=== PATIENT | female | born 1975 | race Two or more races ===

== ENCOUNTER 2023-08-03 15:38 | Emergency (ER) | payer OTHER ==
[~2023-08-03] VITALS: Ht 149.9 cm; Wt 68.0 kg
[2023-08-03 16:30] LABS: BASOPHILS % (AUTO) 0.2 % (0.0-2.0); EOSINOPHILS % (AUTO) 0.1 % (0.0-6.0); HEMATOCRIT 33 % (33-45); HEMOGLOBIN 10.9 g/dL (11.5-14.8); LYMPHOCYTES # (AUTO) 0.9 K/uL (0.8-4.8); LYMPHOCYTES % (AUTO) 10.8 % (20.0-44.0); MEAN CORPUSCULAR HEMOGLOBIN 26 PG (26.0-33.0); MEAN CORPUSCULAR HGB CONC 33 g/dl (31.0-36.0); MEAN CORPUSCULAR VOLUME 79 fL (82-100); MONOCYTES # (AUTO) 0.3 K/uL (0.1-1.30); MONOCYTES % (AUTO) 3.5 % (2.0-12.0); NEUTROPHILS # (AUTO) 6.8 K/uL (1.8-8.9); NEUTROPHILS % (AUTO) 85.4 % (43.0-81.0); PLATELET COUNT (AUTO) 326 K/uL (150-450); RED BLOOD CELL COUNT(AUTO) 4.23 MIL/uL (4.0-5.2); RED CELL DISTRIBUTION WIDTH 15.3 % (11.5-15.0)
[2023-08-03] MEDS: IV NS 0.9% 1,000 ML BAG IV ONE (16:30)
[2023-08-03] MEDS: METOCLOPRAMIDE HCL 10 MG/2 ML VIAL IV ONE (16:30)
[2023-08-03] MEDS: diphenhydrAMINE HCL 50 MG/ML VIAL IV ONE (16:30)
[2023-08-03] MEDS ORDERED: diphenhydrAMINE HCL 50 MG/ML VIAL ONE (16:32)
[2023-08-03] MEDS ORDERED: METOCLOPRAMIDE HCL 10 MG/2 ML VIAL ONE (16:33)
[2023-08-03 16:35] LABS: CALCIUM, SERUM 8.3 mg/dL (8.5-10.1); CARBON DIOXIDE 26 mmol/L (21-32); CHLORIDE 104 mmol/L (98-107); CREATININE 0.5 mg/dL (0.6-1.3); GLUCOSE 118 mg/dL (74-106); POTASSIUM 4.1 mmol/L (3.5-5.1); SODIUM SERUM 138 mmol/L (136-145); UREA NITROGEN, BLOOD 7 mg/dL (7-18)
[2023-08-03 16:41] LABS: ALANINE AMINOTRANSFERASE 18 U/L (12-78); ALBUMIN 3.5 g/dL (3.4-5.0); ALKALINE PHOSPHATASE 119 U/L (46-116); ASPARTATE AMINOTRANSFERASE 18 U/L (15-37); BILIRUBIN,DIRECT 0.1 mg/dL (0.0-0.2); BILIRUBIN,TOTAL 0.3 mg/dL (0.2-1.0); TOTAL PROTEIN, SERUM 7.9 g/dL (6.4-8.2)
[2023-08-03 17:09] LABS: ERYTHROCYTE SEDIMENTATION RATE 35 MM/HR (0-20)
[2023-08-03] MEDS ORDERED: DIAZEPAM 5 MG TABLET ONE (17:58)
[2023-08-03] MEDS: DIAZEPAM 5 MG TABLET PO ONE (18:02)
[2023-08-03 18:17] LABS: APPEARANCE,URINE Clear (CLEAR); BILIRUBIN,URINE Negative (NEGATIVE); BLOOD, URINE Small Ery/uL (NEGATIVE); COLOR,URINE YELLOW (YELLOW); KETONES,URINE 80 mg/dL (NEGATIVE); LEUKOCYTE ESTERASE ,URINE Negative (NEGATIVE); NITRITE, URINE Negative (NEGATIVE); PREGNANCY TEST URINE QUAL NEGATIVE (NEGATIVE); PROTEIN,URINE Negative (NEGATIVE); UGLUCOSE Negative (NEGATIVE); UROBILINOGEN,URINE 0.2 EU/dL (0.2)
[2023-08-03] MEDS ORDERED: MECL-159 PO (18:42)
[2023-08-03 19:04] LABS: ADD URINE CULTURE NO; BACTERIA,URINE Few /HPF (None Seen); WBC,URINE 0-2 /HPF (0-3)
[2023-08-03 19:19] VITALS: BP 155/81; TEMP 97; O2SAT 100
== END 2023-08-03 19:21 | disposition home or self-care (01) ==
LOC: ER 15:38
DX: R42 Dizziness and giddiness (principal); R10.2 Pelvic and perineal pain; Z60.2 Problems related to living alone
CPT/HCPCS: 99284; 96374; 96361; 96375; 93005; 85025; 80048; 80076; 84703; 85652; 81001; 36415; 84484; 82962; J1200; J2765; J7030